=== PATIENT | female | born 1965 | race American Indian/Alaskan Native ===

== ENCOUNTER 2019-11-23 19:52 | Emergency (ER) | payer SELFPAY ==
[2019-11-23 22:13] LABS: Alanine Aminotransferase 7 units/L (7-56); Albumin 3.7 g/dL (3.9-5); Blood Urea Nitrogen 7 mg/dL (7-17); Calcium 9.4 mg/dL (8.4-10.2); Hemolysis Index 4
[2019-11-23 22:15] LABS: BUN/Creatinine Ratio 10
[2019-11-23 22:17] LABS: Basophils % (Auto) 0.5 % (0.0-1.8); Eosinophils # (Auto) 0.2 K/mm3 (0.0-0.4); Eosinophils % (Auto) 2.7 % (0.0-4.3); Hematocrit 36.1 % (30.3-42.9); Hemoglobin 11.9 gm/dl (10.1-14.3); Lymphocytes % (Auto) 28.1 % (13.4-35.0); Mean Corpuscular HGB Conc 33 % (30-34); Mean Corpuscular Volume 92 fl (79-97); Monocytes # (Auto) 0.6 K/mm3 (0.0-0.8); Monocytes % (Auto) 7.9 % (0.0-7.3); Platelet Count 266 K/mm3 (140-440); Red Blood Count 3.92 M/mm3 (3.65-5.03); Red Cell Distribution Width 16.1 % (13.2-15.2)
[2019-11-24] MEDS ORDERED: ONDANSETRON 4 MG ODT TAB PO ONE (01:00)
[2019-11-24] MEDS ORDERED: DICYCLOMINE 20 MG TAB PO ONE (01:00)
[2019-11-24] MEDS ORDERED: FAMOTIDINE 20 MG TAB PO ONE (01:00)
[2019-11-24 01:04] LABS: Color,Urine Yellow (Yellow)
[2019-11-24 01:05] LABS: Bacteria,Urine 2+ /HPF (Negative); Bilirubin,Urine NEG (Negative); Blood,Urine SM (Negative); Mucus,Urine FEW /HPF; Protein,Urine <15 mg/dL mg/dL (Negative); Urobilinogen,Urine < 2.0 mg/dL (<2.0)
--- NOTE | 2019-11-24 01:54 | Emergency Department Report ---
<WYATT HAYNES - Last Filed: 11/24/19 01:49> ED N/V/D HPI - General Chief complaint: Abdominal Pain Stated complaint: ABD PAIN DIZZINESS SWEATING Source: patient Mode of arrival: Ambulatory Limitations: No Limitations - History of Present Illness Initial comments: Patient is a 54-year-old -[place] female with a history of asthma who presents to the ED with complaint of acute onset persistent intermittent nausea and vomiting with diffuse abdominal pain that radiates to the epigastric area and diarrhea for the last 4 days. Patient states that prior to the onset of the symptoms she had eaten some cheese that had that she brought at the [employer]. Patient states that in the last 3 days she has not been able to keep anything down or eat anything and now feels generalized weakness and lack of appetite. Patient states that the last time she had nausea or vomiting was about 6 hours ago. Patient states that no one else at home is had similar symptoms because she lives alone. Patient however states that the last time she had diarrhea was over 12 hours ago. Patient denies chest pain, shortness of breath, fever, chills, cough, dysuria, urinary frequency and urgency, headache, syncope, hematemesis, hematochezia, vaginal bleeding or vaginal discharge. MD complaint: nausea, vomiting, diarrhea, abdominal pain -: Sudden, days(s) (4) Description of Vomiting: food contents, watery Description of Diarrhea: water Associated Abdominal Pain: Yes (Epigastric ) Location: epigastric Radiation: none Severity: moderate Pain Scale: 4 Quality: cramping, aching Consistency: intermittent Improves with: none Worsens with: eating, vomiting Context: possible food poisoning Associated Symptoms: denies other symptoms, loss of appetite, malaise, nausea/vomiting. denies: myalgias, chest pain, cough, diaphoresis, fever/chills, headaches, rash, dysuria, shortness of breath, syncope, weakness - Related Data Previous Rx's Medication Instructions Recorded Last Taken Type Dicyclomine [Bentyl] 20 mg PO Q6H PRN #30 tablet 11/24/19 Unknown Rx Famotidine [Pepcid] 20 mg PO Q12H #30 tablet 11/24/19 Unknown Rx Ondansetron [Zofran Odt] 4 mg PO Q6HR PRN #20 tab.rapdis 11/24/19 Unknown Rx Allergies Allergy/AdvReac Type Severity Reaction Status Date / Time No Known Allergies Allergy Unverified 11/23/19 20:46 ED Review of Systems Constitutional: denies: chills, fever Eyes: denies: eye pain, eye discharge, vision change ENT: denies: ear pain, throat pain Respiratory: denies: cough, shortness of breath, wheezing Cardiovascular: denies: chest pain, palpitations Endocrine: no symptoms reported Gastrointestinal: abdominal pain, nausea, vomiting, diarrhea Genitourinary: denies: urgency, dysuria, discharge Musculoskeletal: denies: back pain, joint swelling, arthralgia Skin: denies: rash, lesions Neurological: denies: headache, weakness, paresthesias Psychiatric: denies: anxiety, depression Hematological/Lymphatic: denies: easy bleeding, easy bruising ED Past Medical Hx - Past Medical History Hx Asthma: Yes - Social History Smoking Status: Never Smoker Substance Use Type: None - Medications Home Medications: Home Medications Medication Instructions Recorded Confirmed Last Taken Type Dicyclomine [Bentyl] 20 mg PO Q6H PRN #30 tablet 11/24/19 Unknown Rx Famotidine [Pepcid] 20 mg PO Q12H #30 tablet 11/24/19 Unknown Rx Ondansetron [Zofran Odt] 4 mg PO Q6HR PRN #20 tab.rapdis 11/24/19 Unknown Rx ED Physical Exam - General Limitations: No Limitations General appearance: alert, in no apparent distress - Head Head exam: Present: atraumatic, normocephalic, normal inspection - Eye Eye exam: Present: normal appearance, PERRL, EOMI Pupils: Present: normal accommodation - ENT ENT exam: Present: normal exam, normal orophraynx, mucous membranes moist, TM's normal bilaterally, normal external ear exam - Neck Neck exam: Present: normal inspection, full ROM - Respiratory Respiratory exam: Present: normal lung sounds bilaterally. Absent: respiratory distress, wheezes, rales, chest wall tenderness, accessory muscle use - Cardiovascular Cardiovascular Exam: Present: regular rate, normal rhythm, normal heart sounds. Absent: systolic murmur, diastolic murmur, rubs, gallop - GI/Abdominal GI/Abdominal exam: Present: soft, normal bowel sounds. Absent: tenderness, guarding, hyperactive bowel sounds, hypoactive bowel sounds - Extremities Exam Extremities exam: Present: normal inspection, full ROM, normal capillary refill - Back Exam Back exam: Present: normal inspection, full ROM. Absent: tenderness, CVA tenderness (R), CVA tenderness (L), muscle spasm, paraspinal tenderness - Neurological Exam Neurological exam: Present: alert, oriented X3, CN II-XII intact, normal gait, reflexes normal - Psychiatric Psychiatric exam: Present: normal affect, normal mood - Skin Skin exam: Present: warm, dry, intact, normal color. Absent: rash ED Medical Decision Making - Lab Data Result diagrams: 11/23/19 21:11 11/23/19 21:11 - Medical Decision Making This is a 54-year-old -[place] female with a history of asthma who presents to the ED with complaint of acute onset persistent intermittent nausea and vomiting with diffuse abdominal pain that radiates to the epigastric area and diarrhea for the last 4 days. Patient states that prior to the onset of the symptoms she had eaten some cheese that had that she brought at the supermarket. Patient states that in the last 3 days she has not been able to keep anything down or eat anything and now feels generalized weakness and lack of appetite. Patient states that the last time she had nausea or vomiting was about 6 hours ago. Patient states that no one else at home is had similar symptoms because she lives alone. Patient however states that the last time she had diarrhea was over 12 hours ago. In the ED, patient is alert and oriented x3 and is not in distress. Patient was treated for pain in the ED and also treated for nausea and vomiting and also given antacids. Lab test results were reviewed and are all nonactionable including urinalysis. Patient however declined any IV fluids stating that it will take too long. On reevaluation, patient nausea and vomiting resolved and patient was able to keep oral fluids in the ED. Patient was therefore discharged home on medications and advised to maintain a clear liquid diet for 12 to 24 hours and to follow-up with her primary care physician in 5 to 7 days for reevaluation or return to the ED immediately if symptoms get worse. - Differential Diagnosis Gastroenteritis; GERD; UTI; gastritis; cholelithiasis ED Disposition Clinical Impression: Hypertensive emergency, Viral gastroenteritis, Nausea, vomiting and diarrhea Disposition: LEFT AGAINST MED ADVICE Is pt being admited?: No Does the pt Need Aspirin: No Condition: Undetermined Instructions: Gastroenteritis (ED), Acute Nausea and Vomiting (ED), Food Poisoning (ED), Abdominal Pain (ED), Hypertension (ED) Additional Instructions: Maintain a clear liquid diet for 12 to 24 hours, drink plenty of fluids and take medication as needed. Follow-up with your primary care physician in 5 to 7 days for reevaluation. Return to the ED immediately if symptoms get worse. Prescriptions: Dicyclomine [Bentyl] 20 mg PO Q6H PRN #30 tablet PRN Reason: Abdominal pain Famotidine [Pepcid] 20 mg PO Q12H #30 tablet Ondansetron [Zofran Odt] 4 mg PO Q6HR PRN #20 tab.rapdis PRN Reason: Nausea Referrals: [facility] [Provider Group] - 3-5 Days Forms: AMA Form, Work/School Release Form(ED) Time of Disposition: 01:52 Print Language: AZERI <SILVIO GALICIA III - Last Filed: 11/24/19 02:30> ED Review of Systems ROS: Stated complaint: ABD PAIN DIZZINESS SWEATING Other details as noted in HPI ED Course Vital Signs 11/23/19 11/24/19 20:45 02:17 Temperature 98.1 F Pulse Rate 84 67 Respiratory 17 Rate Blood Pressure 183/78 222/121 O2 Sat by Pulse 100 Oximetry - Reevaluation(s) Reevaluation #1: Patient is Paul been discharged from [facility] and prior to discharge the nurse checked the patient blood pressure and the blood pressure was extremely high at 220/136. The PA ordered hydralazine and the patient refused to take the medication. Patient states she does not understand why she needs to take it. I explained in full detail the importance of controlling her blood pressure. The patient still refused to take the medication. I discussed the risk with patient. Patient voiced understanding of the risk. Patient signed AMA form. I reviewed the findings and management of this patient in real-time and I have personally seen and examined this patient and participated in the decision making for this patient with the midlevel. I examined the patient. Patient has a normal S1-S2. CV exam is within normal limits. Lung sounds are clear. Abdominal exam is negative. Patient is ambulatory in the room. Patient is alert and oriented x4. Patient has been discharged however the patient was found to have elevated blood pressure. Patient also states that she does not want to be prescribed blood pressure medications. Patient is already been given discharge instructions. Patient refused to take the hydralazine ordered by the PA. Patient signed AMA form. 11/24/19 02:15 ED Medical Decision Making - Lab Data Result diagrams: 11/23/19 21:11 11/23/19 21:11 Critical care attestation.: If time is entered above; I have spent that time in minutes in the direct care of this critically ill patient, excluding procedure time. ED Disposition Is pt being admited?: No Does the pt Need Aspirin: No
[2019-11-24] MEDS: hydrALAZINE 25 MG TAB PO ONE ×2 (02:10→02:17)
[2019-11-24 02:18] VITALS: BP 222/121
== END 2019-11-24 02:20 | disposition left against medical advice (07) ==
LOC: ED 19:52
DX: A08.4 Viral intestinal infection, unspecified (principal); I16.1 Hypertensive emergency; R11.2 Nausea with vomiting, unspecified; R19.7 Diarrhea, unspecified; J45.909 Unspecified asthma, uncomplicated; Z79.899 Other long term (current) drug therapy
CPT/HCPCS: 36415; 80053; 81001; 85025; Q0162